=== PATIENT | male | born 1925 | race Caucasian/White ===

== ENCOUNTER 2016-12-03 09:11 | Inpatient (IN) | payer MEDICARE, BC ==
[2016-11-19 09:42] VITALS: BMI 26.1
[~2016-12-03 09:11] MED LIST: ACETAMINOPHEN TAB 500 MG TAB PO ONE; DEXAMETHASONE SOD PHOSPHATE 10 MG/ML 1 ML VIAL IV ONE; HYDROmorphone 1 MG/ML 1 ML SYRINGE IVP PRN; LACTATED RINGERS 1,000 ML IV SCH; MELOXICAM 7.5 MG TAB PO ONE; MIDAZOLAM 2 MG/2 ML VIAL IV PRN; ONDANSETRON 4 MG/2 ML VIAL IVP ONE; TRANEXAMIC ACID 1,000 MG in SODIUM CHLORIDE 0.9% 100 ML IVPB ONE; ceFAZolin 2 GM in SODIUM CHLORIDE 0.9% 100 ML IVPB ONE
[2016-12-03] MEDS ORDERED: ROPIVACAINE 246.25 MG, EPINEPHrine 0.5 MG, KETOROLAC 30 MG, cloNIDine HCL/PF 80 MCG, WA... MISCELLANE ONE ×5 (09:30)
[2016-12-03] MEDS ORDERED: ONDANSETRON 4 MG/2 ML VIAL IVP PRN (10:10)
[2016-12-03] MEDS ORDERED: hydrOXYzine PAMOATE 25 MG CAP PO PRN (10:10)
[2016-12-03] MEDS ORDERED: MAGNESIUM HYDROXIDE 2,400 MG/10 ML CUP PO PRN (10:10)
[2016-12-03] MEDS ORDERED: DIAZEPAM 5 MG TAB PO PRN ×2 (10:10)
[2016-12-03] MEDS ORDERED: NALOXONE 0.4 MG/ML 1 ML VIAL IV PRN (10:10)
[2016-12-03] MEDS ORDERED: HYDROmorphone 1 MG/ML 1 ML SYRINGE IVP PRN ×3 (10:10)
[2016-12-03] MEDS ORDERED: HYDROcodone/APAP 5-325MG 1 EACH TAB PO PRN ×2 (10:10)
[2016-12-03] MEDS ORDERED: BISACODYL 10 MG SUPP RECTAL PRN (10:10)
[2016-12-03] MEDS ORDERED: SODIUM CHLORIDE 0.9% 1,000 ML IV SCH (10:15)
[2016-12-03 10:51] VITALS: BP 174/82; PULSE 96; RESP 18; TEMP 98.2
[2016-12-03] MEDS ORDERED: ROPIVACAINE 1,100 MG, SODIUM CHLORIDE 0.9% 330 ML MISCELLANE PRN ×2 (10:57)
[2016-12-03 11:03] LABS: Potassium 4.5 mmol/L (3.5-5.1)
[2016-12-03 11:25] LABS: INR 1.7 (<1.1); Prothrombin Time 16.1 sec (9.0-12.0)
--- NOTE | 2016-12-03 11:58 | P.PN ---
Progress Note - Text The patient was seen and evaluated in the preoperative area. His lab values were reviewed and he was found to have an INR of 1.7. His preop INR was 1.4. He is currently not taking any anticoagulants. He was also noted that his sodium level was elevated from preop as well. After discussing this with the anesthesiologist, and also with Dr. Hoffman, I recommended that we hold his surgery until further workup can be obtained. The patient is agreeable to this , and will be reevaluated by Dr. Hoffman's office this week.
[2016-12-03] MEDS ORDERED: ceFAZolin 2 GM in SODIUM CHLORIDE 0.9% 100 ML IVPB SCH (16:00)
[2016-12-03] MEDS ORDERED: ASPIRIN 325 MG TAB PO SCH (21:00)
[2016-12-03] MEDS ORDERED: SENNOSIDES-DOCUSATE SODIUM 1 EACH TAB PO SCH (21:00)
[2016-12-04] MEDS ORDERED: MELOXICAM 7.5 MG TAB PO SCH (09:00)
== END 2016-12-03 10:28 | disposition home or self-care (01) | DRG 554 ==
LOC: 2ORMAIN 09:28
PROVIDERS: ADMIT Orthopaedic Surgery; ATTEND Orthopaedic Surgery
DX: M17.11 Unilateral primary osteoarthritis, right knee (principal); E87.0 Hyperosmolality and hypernatremia; D68.9 Coagulation defect, unspecified; I10 Essential (primary) hypertension; E03.9 Hypothyroidism, unspecified; Z79.899 Other long term (current) drug therapy; Z53.09 Procedure and treatment not carried out because of other contraindication
CPT/HCPCS: 80051; 85610

== ENCOUNTER 2016-12-16 13:10 | Inpatient (IN) | payer MEDICARE, BC ==
[~2016-12-16 13:10] MED LIST changes: -DEXAMETHASONE SOD PHOSPHATE 10 MG/ML 1 ML VIAL IV ONE; +LIDOCAINE 1% 20 ML VIAL (10MG/ML) FOR IV START INTRADERMA PRN; +Pre Op ABX Message 1 EACH MISC MISCELLANE ONE; +ROPIVACAINE 246.25 MG, EPINEPHrine 0.5 MG, KETOROLAC 30 MG, cloNIDine HCL/PF 80 MCG, WA... MISCELLANE ONE; -ceFAZolin 2 GM in SODIUM CHLORIDE 0.9% 100 ML IVPB ONE; +fentaNYL (PF) 50 MCG/ML 20 ML VIAL IVP PRN
[2016-12-16 14:26] VITALS: BP 195/90; PULSE 82; RESP 18; TEMP 98.1
[2016-12-16] MEDS ORDERED: LIDOCAINE 1% 20 ML VIAL (10MG/ML) FOR IV START INTRADERMA ONE (14:46)
[2016-12-16 14:48] LABS: Basophils % (A) 0 %; CH 32.1; CHCM 34.3; Eosinophils % (A) 1 %; HCT 43.5 % (39.0-53.0); HDW 2.49; HGB 14.1 gm/dL (13.0-17.5); Luc # (Auto) 0.06; Luc % (Auto) 1; Lymphocytes # (A) 0.8 k/uL (1.0-4.8); Lymphocytes % (A) 15 %; MCH 30.5 pg (25.0-35.0); MCHC 32.4 g/dL (31.0-37.0); Mean Platelet Volume 8.3; Monocytes # (A) 0.3 k/uL (0-1.0); Monocytes % (A) 5 %; Neutrophils # (A) 4.4 k/uL (1.3-7.7); Neutrophils % (A) 78 %; RBC 4.63 m/uL (4.30-5.90); RDW 13.3 % (11.5-15.5); WBC 5.7 k/uL (3.8-10.6); WBC (Perox) 5.74
[2016-12-16] MEDS ORDERED: DEXAMETHASONE SOD PHOSPHATE 10 MG/ML 1 ML VIAL IV ONE (14:51)
[2016-12-16 14:57] LABS: INR 1.7 (<1.1); Prothrombin Time 16.4 sec (9.0-12.0)
[2016-12-16 15:07] LABS: ALT 39 U/L (21-72); AST 28 U/L (17-59); Alkaline Phosphatase 101 U/L (38-126); Anion Gap 13 mmol/L; Blood Urea Nitrogen 19 mg/dL (9-20); Calcium 9.5 mg/dL (8.4-10.2); Carbon Dioxide 23 mmol/L (22-30); Chloride 105 mmol/L (98-107); Glucose 86 mg/dL (74-99); Non-African American GFR(MDRD) >60 (>60 ml/min/1.73 sqM); Potassium 4.4 mmol/L (3.5-5.1); Sodium 141 mmol/L (137-145); Total Bilirubin 1.9 mg/dL (0.2-1.3)
== END 2016-12-17 16:30 | disposition home or self-care (01) | DRG 554 ==
LOC: 2ORMAIN 13:10
PROVIDERS: ADMIT Orthopaedic Surgery; ATTEND Orthopaedic Surgery
DX: M17.0 Bilateral primary osteoarthritis of knee (principal); I48.91 Unspecified atrial fibrillation; I10 Essential (primary) hypertension; R26.81 Unsteadiness on feet; H91.90 Unspecified hearing loss, unspecified ear; E03.9 Hypothyroidism, unspecified; Z79.82 Long term (current) use of aspirin; Z79.899 Other long term (current) drug therapy; Z85.9 Personal history of malignant neoplasm, unspecified; Z96.641 Presence of right artificial hip joint; Z82.49 Family history of ischemic heart disease and other diseases of the circulatory system
CPT/HCPCS: 80053; 85025; 85610

== ENCOUNTER → 2017-03-11 | Outpatient (CLI) | payer MEDICARE, BC ==
[2017-03-11 11:58] LABS: Appearance,Urine Clear (Clear); Bilirubin,Urine Negative (Negative); Glucose,Urine (UA) Negative (Negative); Ketones,Urine Negative (Negative); Leukocyte Esterase,Urine Negative (Negative); Nitrite,Urine Negative (Negative); PH, Urine 6.5 (5.0-8.0); Protein,Urine Negative (Negative); Specific Gravity,Urine 1.006 (1.001-1.035); UA Billing (MACRO vs. MICRO) CHEM; Urobilinogen,Urine <2.0 mg/dL (<2.0)
[2017-03-11 12:06] LABS: Basophils % (A) 0 %; CHCM 32.2; Eosinophils # (A) 0.1 k/uL (0-0.7); Eosinophils % (A) 2 %; HCT 42.6 % (39.0-53.0); HDW 2.34; HGB 13.8 gm/dL (13.0-17.5); Luc # (Auto) 0.08; Luc % (Auto) 2; Lymphocytes # (A) 0.9 k/uL (1.0-4.8); Lymphocytes % (A) 21 %; MCH 31.2 pg (25.0-35.0); MCHC 32.3 g/dL (31.0-37.0); MCV 96.6 fL (80.0-100.0); Mean Platelet Volume 7.6; Monocytes # (A) 0.3 k/uL (0-1.0); Monocytes % (A) 6 %; Neutrophils # (A) 2.8 k/uL (1.3-7.7); Neutrophils % (A) 68 %; RBC 4.42 m/uL (4.30-5.90); RDW 13.7 % (11.5-15.5); WBC 4.2 k/uL (3.8-10.6); WBC (Perox) 4.27
[2017-03-11 12:13] LABS: ALT 32 U/L (21-72); AST 23 U/L (17-59); Alkaline Phosphatase 91 U/L (38-126); Anion Gap 12 mmol/L; Blood Urea Nitrogen 15 mg/dL (9-20); Calcium 9.5 mg/dL (8.4-10.2); Carbon Dioxide 26 mmol/L (22-30); Chloride 105 mmol/L (98-107); Glucose 114 mg/dL (74-99); Non-African American GFR(MDRD) >60 (>60 ml/min/1.73 sqM); Potassium 4.6 mmol/L (3.5-5.1); Sodium 143 mmol/L (137-145); Total Bilirubin 1.2 mg/dL (0.2-1.3); Total Protein 7.2 g/dL (6.3-8.2)
[2017-03-11 12:44] LABS: INR 1.6 (<1.1); Partial Thromboplastin Time 25.2 sec (22.0-30.0); Prothrombin Time 15.4 sec (9.0-12.0)
== END | disposition home or self-care (01) ==
LOC: LABPAT 11:21
PROVIDERS: ATTEND Orthopaedic Surgery
DX: Z01.812 Encounter for preprocedural laboratory examination (principal); Z79.01 Long term (current) use of anticoagulants
CPT/HCPCS: 36415; 80053; 81003; 85025; 85610; 85730; 87070

== ENCOUNTER 2017-04-01 06:43 | Inpatient (IN) | payer MEDICARE, BC ==
[2017-03-31 10:58] VITALS: BMI 25.8
[~2017-04-01 06:43] MED LIST changes: +DEXAMETHASONE SOD PHOSPHATE 10 MG/ML 1 ML VIAL IV ONE; -HYDROmorphone 1 MG/ML 1 ML SYRINGE IVP PRN; -Pre Op ABX Message 1 EACH MISC MISCELLANE ONE; -ROPIVACAINE 246.25 MG, EPINEPHrine 0.5 MG, KETOROLAC 30 MG, cloNIDine HCL/PF 80 MCG, WA... MISCELLANE ONE; +SCOPOLAMINE 1.5MG/72HR PATCH TRANSDERM ONE; +ceFAZolin 2 GM in SODIUM CHLORIDE 0.9% 100 ML IVPB ONE; -fentaNYL (PF) 50 MCG/ML 20 ML VIAL IVP PRN
[2017-04-01] MEDS ORDERED: SODIUM CHLORIDE 0.9% 500 ML IV ONE (08:07)
[2017-04-01] MEDS ORDERED: LIDOCAINE 1% 20 ML VIAL (10MG/ML) FOR IV START INTRADERMA ONE (08:07)
[2017-04-01] MEDS ORDERED: SUCCINYLCHOLINE CHLORIDE 100 MG/5 ML SYR IV ONE (09:46)
[2017-04-01] MEDS ORDERED: NEOSTIGMINE 1 MG/ML 10 ML VIAL ONE (09:46)
[2017-04-01] MEDS ORDERED: ROCURONIUM BROMIDE 10 MG/ML 10 ML VIAL IV ONE (09:46)
[2017-04-01] MEDS ORDERED: ePHEDrine 50 MG/ML 1 ML AMP ONE (09:46)
[2017-04-01] MEDS ORDERED: LIDOCAINE 1% INJ 10MG/ML (20 ML MDV) ONE (09:46)
[2017-04-01] MEDS ORDERED: MIDAZOLAM 2 MG/2 ML VIAL ONE (09:46)
[2017-04-01] MEDS ORDERED: fentaNYL (PF) 50 MCG/ML 2 ML AMP ONE (09:46)
[2017-04-01] MEDS ORDERED: PROPOFOL 10 MG/ML 20 ML VIAL IV ONE (09:46)
[2017-04-01] MEDS ORDERED: GLYCOPYRROLATE 0.2 MG/ML 2 ML VIAL ONE (09:46)
[2017-04-01] MEDS: ROPIVACAINE 246.25 MG, EPINEPHrine 0.5 MG, KETOROLAC 30 MG, cloNIDine HCL/PF 80 MCG, WA... MISCELLANE ONE ×10 (10:18→10:32)
[2017-04-01] MEDS ORDERED: ceFAZolin 3,000 MG in SODIUM CHLORIDE 0.9% IRRIGATIO 3,000 ML IRRIGATION ONE (10:19)
[2017-04-01] MEDS ORDERED: HYDROmorphone 1 MG/ML 1 ML SYRINGE IVP PRN ×3 (11:21)
[2017-04-01] MEDS ORDERED: hydrOXYzine PAMOATE 25 MG CAP PO PRN (11:21)
[2017-04-01] MEDS ORDERED: DIAZEPAM 5 MG TAB PO PRN ×2 (11:21)
[2017-04-01] MEDS ORDERED: BISACODYL 10 MG SUPP RECTAL PRN (11:21)
[2017-04-01] MEDS ORDERED: MAGNESIUM HYDROXIDE 2,400 MG/10 ML CUP PO PRN (11:21)
[2017-04-01] MEDS ORDERED: NALOXONE 0.4 MG/ML 1 ML VIAL IV PRN (11:21)
[2017-04-01] MEDS ORDERED: ONDANSETRON 4 MG/2 ML VIAL IVP PRN (11:21)
--- NOTE | 2017-04-01 12:01 | XR ---
Right knee limited HISTORY: Status post right knee arthroplasty 2 views of the right knee No comparisons Patient is status post right knee arthroplasty. Lucency in the soft tissues compatible with postop st ate. There are vascular calcifications noted. Alignment is anatomic. IMPRESSION: Orthopedic follow-up.
[2017-04-01] MEDS: HYDROmorphone 1 MG/ML 1 ML SYRINGE IVP PRN ×2 (12:06→12:12)
[2017-04-01] MEDS ORDERED: LABETALOL 5 MG/ML VIAL MDV IVP STA (12:18)
[2017-04-01] MEDS ORDERED: LABETALOL 5 MG/ML VIAL MDV IVP ONE ×2 (12:30→12:32)
[2017-04-01] MEDS ORDERED: hydrALAZINE HCL 20 MG/ML 1 ML VIAL IVP ONE (12:51)
--- NOTE | 2017-04-01 13:17 | P.OP ---
Date of Procedure: 04/01/17 Preoperative Diagnosis: Severe osteoarthritis right knee Postoperative Diagnosis: Severe osteoarthritis right knee Procedure(s) Performed: Right total knee arthroplasty Implants: Olvera [employer] Nephew Oxinium femoral component size 6, right Olvera & Nephew Jenny II right nonporous tibial baseplate size 8 Olvera [employer] Nephew size 9 mm Legion XLPE high flexion articular insert, size 7-8 Olvera [employer] Nephew Jenny II resurfacing patellar component, 35 mm All components were cemented using Torrey bone cement.. The articulation is ceramic on polyethylene. Anesthesia: GETA Surgeon: Luis Fernando Jensen Fitness And Wellness Instructor #1: Christelle Bell Fitness And Wellness Instructor #2: Megan Britton Estimated Blood Loss (ml): 50 Pathology: other (Bone and cartilage) Condition: stable Disposition: PACU Indications for Procedure: After failure of conservative treatment we discussed the surgical and nonsurgical treatment options at length. Patient wishes to proceed with a total knee arthroplasty. Complications specific to this procedure were discussed at length, including but not limited to infection, bleeding, stiffness , and nerve injury. Patient is aware of all these complications and informed consent was obtained Operative Findings: The operative findings are consistent with severe osteoarthritis of the right knee Description of Procedure: Patient was seen in the preoperative area consent was reviewed and operative site was marked with a skin marker. An adductor canal pain catheter was placed by anesthesia in the preoperative area. Patient was then brought to the operating room and given preoperative antibiotics intravenously. A spinal anesthetic was administered by the anesthesia department. A tourniquet was placed on the upper thigh and the lower extremity was prepped and draped in usual sterile fashion. A gram of transexamic acid was given. A universal timeout was then performed which confirmed the patient's name, surgical site, ALLERGIES, and consent. The lower extremity was then exsanguinated and tourniquet was inflated to 250 mmHg. A standard and anterior midline approach to the knee was performed. The skin and subcutaneous tissue was dissected down to the patellar tendon. A medial parapatellar arthrotomy was then performed. The knee was then extended, the patellar was everted, and the knee was again flexed. Anterior horns of both menisci were excised, and a release was performed to the posterior medial aspect of the knee. On gross visual inspection, there was complete loss of articular cartilage in the medial and patellofemoral joint spaces. There was also significant cartilage damage in the lateral compartment. There were multiple periarticular osteophytes which were then removed with a Ronguer. The femoral canal was then opened with the appropriate drill, and the intramedullary femoral cutting guide was then placed and set for 4 of valgus. The distal femoral cutting block was then pinned in place, and the distal femur was then cut. The cutting block was then removed and the cut was checked for flatness. Next, the sizing guide was then placed and set for 3 external rotation based off of the epicondylar axis and Whitesides line. After the femur was sized, the appropriate 4-in-1 cutting block was then pinned in place. The anterior condyles were cut without notching. The posterior and chamfer cuts were performed while protecting the collateral ligaments. The cutting block was then removed, and the femoral canal was plugged with autologous bone. Attention was then directed to the tibia. The remaining ACL was removed with a Ronguer, and the tibia was then gently subluxed forward with a large bent knee retractor. Any remaining menisci was excised. The posterior lateral corner was cauterized in order to cauterize the lateral geniculate artery. The extra medullary tibial cutting guide was then placed, set for the appropriate rotation , slope, and depth of resection. The proximal tibia cutting guide was then pinned in place. Proximal tibia was then cut and sized. Next trials were then placed with the appropriate-sized insert. The knee was able to fully extend and flex to 130 and was stable throughout all range of motion. The knee was then extended, patella everted. Patella was then measured, and then using an osteotomy guide, the patella was cut at the appropriate level. The patella was then measured and drilled and the patella trial was then placed. The knee was then taken through range of motion with the patella trial and the patella tracked normally. The knee was then extended patella trial was then removed and the patella was everted. Knee was then flexed and lug holes were drilled through the femoral trial and the femoral trial was then removed. The tibial was then exposed, and the tibial broach guide was then pinned in place after it was set for the appropriate rotation to allow for the most coverage without overhang. The tibia was then reamed and broached. The cut surfaces of bone were then irrigated with pulsatile lavage. The posterior structures were injected with the ropivacaine solution. The knee was also irrigated with Irrisept solution. The components were then opened, the cement was mixed, and the components were then cemented in place. The cement was allowed to harden with the knee in full extension. While the cement was hardening, the remaining soft tissues were then injected with a ropivacaine solution, which consisted of 246.25 mg of ropivacaine, 0.5 mg of epinephrine, 30 mg of Toradol, 80 g of clonidine, and 48.45 mL of sterile water, for a total of 100 mL of fluid injected. After the cemented hardened. The tourniquet was released, and hemostasis was obtained. The knee was again irrigated. The knee was again taken through range of motion and found to be stable throughout all range of motion of 0-130, and the patella tracked normally. The fascia was then closed with #2 strata fix suture. The subcutaneous tissue was closed with 3-0 Vicryl and 3-0 strata fix. Dermabond tape was used for the skin and placed with the knee in flexion. The patient was placed in a sterile dressing. Patient was then transferred to recovery room in stable condition. The assistant grocery AMINA Son was required due the complexity surgery and the need for a skilled surgical services director. She assisted in positioning, draping , retraction, and closure of the wound.
[2017-04-01] MEDS: SODIUM CHLORIDE 0.9% 1,000 ML IV SCH ×2 (17:50→19:11)
[2017-04-01] MEDS: ceFAZolin 2 GM in SODIUM CHLORIDE 0.9% 100 ML IVPB SCH (19:03)
[2017-04-01] MEDS ORDERED: PROCHLORPERAZINE 10 MG TAB PO PRN (19:54)
[2017-04-01] MEDS: ASPIRIN 325 MG TAB PO SCH (20:57)
[2017-04-01] MEDS: SENNOSIDES-DOCUSATE SODIUM 1 EACH TAB PO SCH (20:57)
[2017-04-01] MEDS ORDERED: GLYCERIN ADULT SUPPOSITORY 1 EACH RECTAL PRN (22:31)
[2017-04-02] MEDS: HYDROcodone/APAP 5-325MG 1 EACH TAB PO PRN ×5 (00:36→23:03)
[2017-04-02] MEDS: amLODIPine 2.5 MG TAB PO SCH ×2 (00:38→09:43)
[2017-04-02] MEDS: ceFAZolin 2 GM in SODIUM CHLORIDE 0.9% 100 ML IVPB SCH (03:38)
[2017-04-02] MEDS ORDERED: NON-FORMULARY DRUG (Omega-3 Fatty Acids/Fish Oil [Fish Oil 1,000 Mg Softgel] 1 CAP) PO SCH (09:00)
--- NOTE | 2017-04-02 09:35 | P.PN ---
Subjective Principal diagnosis: Status post total knee arthroplasty This is a well-appearing 89-year-old male who is status post total knee arthroplasty with a history of osteoarthritis of the right knee. Patient is postop day #1. Patient states he has been up and walking to the bathroom but has not been evaluated by physical therapy yet. Patient complains of mild tightness to the knee but otherwise has no complaints. Patient was seen and evaluated at bedside with Dr. Jensen today. Objective - Vital Signs Vital signs: Vital Signs Temp 98.1 F 04/01/17 20:21 Pulse 75 04/01/17 20:21 Resp 20 04/01/17 20:21 BP 161/83 04/01/17 20:21 Pulse Ox 96 04/01/17 20:21 Intake & Output 04/01/17 04/02/17 04/02/17 18:59 06:59 18:59 Intake Total 5946 700 Output Total 550 Balance 5946 150 Weight 81.647 kg Intake: IV 4750 Intake, IV Titration 700 Amount Sodium Chloride 0.9% 1, 600 000 ml @ 50 mls/hr IV . Q20H [facility] Rx#:[id number] ceFAZolin 2 gm In Sodium 100 Chloride 0.9% 100 ml @ 100 mls/hr IVPB Q8H [facility] Rx#:[id number] Blood Product 1196 Ffp 24 Cpd Unit 292 [id number] Ffp 24 Cpd Unit 324 [id number] Ffp 24 Cpd Unit 283 [id number] Ffp 24 Cpd Unit 297 [id number] Output: Urine 550 - Exam Vital signs are stable. Patient's calf is soft and nontender. Patient has full foot and ankle motion. Incision is clean, dry and intact with no drainage. Neurovascular status is intact. Assessment and Plan (1) History of total knee arthroplasty Status: Acute (2) Osteoarthritis of right knee Status: Acute Plan: #1 continue with routine postoperative care. #2 anticoagulation with aspirin. #3 physical therapy and CPM today. #4 appreciated input from medicine. #5 possible discharge home or to rehab on Friday
[2017-04-02 09:36] VITALS: RESP 16
[2017-04-02] MEDS: levETIRAcetam 500 MG TAB PO SCH ×2 (09:38→20:46)
[2017-04-02] MEDS: MULTIVITAMINS, THERA 1 EACH TAB PO SCH (09:38)
[2017-04-02] MEDS: TERAZOSIN 1 MG CAP PO SCH (09:38)
[2017-04-02] MEDS: ASPIRIN 325 MG TAB PO SCH ×2 (09:38→20:46)
[2017-04-02 10:18] LABS: Basophils % (A) 1 %; CH 31.5; CHCM 33.4; Eosinophils # (A) 0.1 k/uL (0-0.7); Eosinophils % (A) 2 %; HCT 27.7 % (39.0-53.0); HGB 9.3 gm/dL (13.0-17.5); Luc % (Auto) 2; Lymphocytes # (A) 0.6 k/uL (1.0-4.8); Lymphocytes % (A) 12 %; MCHC 33.7 g/dL (31.0-37.0); MCV 94.7 fL (80.0-100.0); Mean Platelet Volume 8.2; Monocytes # (A) 0.5 k/uL (0-1.0); Monocytes % (A) 9 %; Neutrophils # (A) 3.8 k/uL (1.3-7.7); Neutrophils % (A) 75 %; RBC 2.92 m/uL (4.30-5.90); RDW 13.4 % (11.5-15.5); WBC 5.1 k/uL (3.8-10.6)
[2017-04-02] MEDS: ATORVASTATIN 20 MG TAB PO SCH (20:46)
[2017-04-02] MEDS: SENNOSIDES-DOCUSATE SODIUM 1 EACH TAB PO SCH (20:46)
[2017-04-03] MEDS: TERAZOSIN 1 MG CAP PO SCH (08:07)
[2017-04-03] MEDS: amLODIPine 2.5 MG TAB PO SCH (08:07)
[2017-04-03] MEDS: ASPIRIN 325 MG TAB PO SCH ×2 (08:07→21:40)
[2017-04-03] MEDS: levETIRAcetam 500 MG TAB PO SCH ×2 (08:07→21:40)
[2017-04-03] MEDS: MULTIVITAMINS, THERA 1 EACH TAB PO SCH (08:07)
--- NOTE | 2017-04-03 08:24 | P.PN ---
Subjective Principal diagnosis: Status post total knee arthroplasty This is a well-appearing 89-year-old male who is status post total knee arthroplasty with a history of osteoarthritis of the right knee. Patient is postop day #2. Patient has been up and walking. Patient has no new complaints. Objective - Vital Signs Vital signs: Vital Signs Temp 98.8 F 04/03/17 07:39 Pulse 82 04/03/17 07:39 Resp 16 04/03/17 07:39 BP 129/79 04/03/17 07:39 Pulse Ox 94 L 04/03/17 07:39 Intake & Output 04/02/17 04/03/17 04/03/17 18:59 06:59 18:59 Intake Total 500 1190 Output Total 400 375 Balance 100 815 Weight 81.647 kg Intake: IV 500 600 Sodium Chloride 0.9% 1, 500 600 000 ml @ 50 mls/hr IV . Q20H [facility] Rx#:[id number] Oral 590 Output: Urine 400 375 Uretheral ([place]ol[place]) 400 375 Other: Voiding Method Urinal Urinal # Voids 2 - Exam Vital signs are stable. Patient's calf is soft and nontender. Patient has full foot and ankle motion. Incision is clean, dry and intact with no drainage. Neurovascular status is intact. - Labs CBC & Chem 7: 04/02/17 07:19 Labs: Abnormal Lab Results - Last 24 Hours (Table) 04/02/17 Range/Units 07:19 RBC 2.92 L (4.30-5.90) m/uL Hgb 9.3 L D (13.0-17.5) gm/dL Hct 27.7 L (39.0-53.0) % Plt Count 119 L (150-450) k/uL Lymphocytes # 0.6 L (1.0-4.8) k/uL Assessment and Plan (1) History of total knee arthroplasty Status: Acute (2) Osteoarthritis of right knee Status: Acute Plan: #1 continue with routine postoperative care. #2 anticoagulation with aspirin. #3 physical therapy and CPM today. #4 appreciated input from medicine. #5 possible discharge home or to rehab on Friday
--- NOTE | 2017-04-03 11:05 | XR ---
EXAMINATION TYPE: XR chest 2V DATE OF EXAM: 04/03/2017 10:55 AM COMPARISON: 08/30/2014 TECHNIQUE: PA and lateral views submitted. HISTORY: ECF placement FINDINGS: Bilateral infiltrate and small effusion seen. No pneumothorax or overt failure. Severe arthropathy le ft shoulder. IMPRESSION: 1. Bilateral infiltrate and small effusion. Tiny granuloma right lung base suspected.
[2017-04-03] MEDS: HYDROcodone/APAP 5-325MG 1 EACH TAB PO PRN ×2 (16:09→21:47)
[2017-04-03] MEDS: ATORVASTATIN 20 MG TAB PO SCH (21:41)
[2017-04-03] MEDS: SENNOSIDES-DOCUSATE SODIUM 1 EACH TAB PO SCH (21:42)
[2017-04-03] MEDS: SODIUM CHLORIDE 0.9% 1,000 ML IV SCH ×2 (21:43→21:49)
[2017-04-04] MEDS: HYDROcodone/APAP 5-325MG 1 EACH TAB PO PRN ×2 (05:07→10:24)
[2017-04-04 07:46] VITALS: BP 132/67; PULSE 62; TEMP 97.2
--- NOTE | 2017-04-04 07:54 | P.PN ---
Subjective Principal diagnosis: Continuing care Objective - Vital Signs Vital signs: Vital Signs Temp 97.2 F L 04/04/17 07:00 Pulse 62 04/04/17 07:00 Resp 16 04/04/17 07:00 BP 132/67 04/04/17 07:00 Pulse Ox 97 04/04/17 07:00 Intake & Output 04/03/17 04/04/17 04/04/17 18:59 06:59 18:59 Intake Total 500 400 Output Total 1000 975 Balance -500 -575 Intake: IV 500 400 Sodium Chloride 0.9% 1, 500 400 000 ml @ 50 mls/hr IV . Q20H [facility] Rx#:[id number] Output: Urine 1000 975 Uretheral ([place]) 975 Other: Voiding Method Indwelling Catheter Indwelling Catheter - Constitutional General appearance: Present: average body habitus - EENT Eyes: Absent: abnormal pupil - Respiratory Respiratory: bilateral: CTA - Cardiovascular Rhythm: regular Heart sounds: normal: S1, S2 - Gastrointestinal General gastrointestinal: Present: soft. Absent: tenderness - Neurologic Neurologic: Present: CNII-XII intact - Labs CBC & Chem 7: 04/02/17 07:19 Assessment and Plan (1) Essential (primary) hypertension Status: Acute (2) Osteoarthritis of right knee Status: Acute Plan: Element of dysphagia. If the symptoms continue, consider GI referral with possible EGD and station. Otherwise, the patient has been told to continue to try to eat as much as "possible.". Anticipate discharge as per orthopedics.
--- NOTE | 2017-04-04 08:04 | P.PN ---
Subjective This is continue present 89-year-old white male essentially admitted for knee arthroplasty. The patient is now postop and has been complaining of intermittent dysphagia. speech therapy was consulted. Appreciate input. Objective - Vital Signs Vital signs: Vital Signs Temp 97.2 F L 04/04/17 07:00 Pulse 62 04/04/17 07:00 Resp 16 04/04/17 07:00 BP 132/67 04/04/17 07:00 Pulse Ox 97 04/04/17 07:00 Intake & Output 04/03/17 04/04/17 04/04/17 18:59 06:59 18:59 Intake Total 500 400 Output Total 1000 975 Balance -500 -575 Intake: IV 500 400 Sodium Chloride 0.9% 1, 500 400 000 ml @ 50 mls/hr IV . Q20H [facility] Rx#:[id number] Output: Urine 1000 975 Uretheral (Boland) 975 Other: Voiding Method Indwelling Catheter Indwelling Catheter - Labs CBC & Chem 7: 04/02/17 07:19 Assessment and Plan (1) Essential (primary) hypertension Status: Acute (2) Osteoarthritis of right knee Status: Acute
[2017-04-04] MEDS: MULTIVITAMINS, THERA 1 EACH TAB PO SCH (08:16)
[2017-04-04] MEDS: levETIRAcetam 500 MG TAB PO SCH (08:16)
[2017-04-04] MEDS: ASPIRIN 325 MG TAB PO SCH (08:16)
[2017-04-04] MEDS: amLODIPine 2.5 MG TAB PO SCH (08:17)
[2017-04-04] MEDS: TERAZOSIN 1 MG CAP PO SCH (08:17)
[2017-04-04 08:23] LABS: Basophils % (A) 0 %; CH 31.4; CHCM 32.9; Eosinophils # (A) 0.3 k/uL (0-0.7); Eosinophils % (A) 6 %; HCT 26.4 % (39.0-53.0); HDW 2.29; HGB 8.6 gm/dL (13.0-17.5); Luc # (Auto) 0.11; Luc % (Auto) 2; Lymphocytes # (A) 0.7 k/uL (1.0-4.8); Lymphocytes % (A) 14 %; MCH 31.2 pg (25.0-35.0); MCHC 32.5 g/dL (31.0-37.0); MCV 95.9 fL (80.0-100.0); Mean Platelet Volume 8.2; Monocytes # (A) 0.3 k/uL (0-1.0); Monocytes % (A) 7 %; Neutrophils # (A) 3.4 k/uL (1.3-7.7); Neutrophils % (A) 71 %; RBC 2.75 m/uL (4.30-5.90); RDW 13.4 % (11.5-15.5); WBC 4.8 k/uL (3.8-10.6); WBC (Perox) 4.85
--- NOTE | 2017-04-04 09:49 | P.DS ---
Providers Date of admission: 04/01/17 06:43 Expected date of discharge: 04/04/17 Attending physician: Luis Fernando Jensen Consults: 04/01/17 11:21 Consult Physician Routine Consulting Provider: Chevy Hoffman Consult Reason/Comments: medical management Do you want consulting provider notified?: Yes Primary care physician: Chevy Hoffman - Discharge Diagnosis(es) (1) History of total knee arthroplasty Current Visit: Yes Status: Acute (2) Osteoarthritis of right knee Current Visit: Yes Status: Acute Hospital Course: This is a 89-year-old male with known history of degenerative arthritis of the right knee. The patient presents for evaluation. After discussion and consideration patient elects to proceed with total knee arthroplasty. The patient is seen preoperatively by Dr. Jensen and cleared for surgery. Patient is admitted to [facility] on 04/01/17 for total knee arthroplasty. The procedures performed without complication or sequelae. The patient is doing well postoperatively. Labs and vital signs are stable on day of discharge. On day of discharge patient's knee incision is healing well. There is minimal erythema. There is no drainage noted at this time. There is minimal soft tissue swelling to the knee. Patient has full foot and ankle motion without difficulty or pain. Calf is soft and nontender. Neurovascular status to the right lower extremity is intact. Patient is discharged to rehab in good condition. Please see med rec for accurate list of home medications. Plan - Discharge Summary New Discharge Prescriptions: Aspirin 325 mg PO BID #60 tab HYDROcodone/APAP 5-325MG [[place]us 5-325] 1 - 2 tab PO Q4-6H PRN #90 tab PRN Reason: Pain Sennosides-Docusate Sodium [Senokot-S] 1 tab PO BID #60 tablet Discharge Medication List Terazosin [Hytrin] 1 mg PO QAM 01/16/15 [History] amLODIPine BESYLATE [Norvasc] 2.5 mg PO QAM 06/15/15 [History] Atorvastatin [Lipitor] 20 mg PO HS 11/19/16 [History] Ibuprofen [Advil] 200 mg PO Q6H PRN 11/19/16 [History] Multivitamin [Men's Multi-Vitamin] 1 tab PO DAILY 11/19/16 [History] Volga-3 Fatty Acids/Fish Oil [Fish Oil 1,000 mg Softgel] 1 cap PO DAILY [History] levETIRAcetam [Keppra] 500 mg PO Q12HR 11/19/16 [History] Glycerin Adult Suppository 1 supp RECTAL DAILY PRN 03/31/17 [History] Aspirin 325 mg PO BID #60 tab 04/04/17 [Rx] HYDROcodone/APAP 5-325MG [[place] 5-325] 1 - 2 tab PO Q4-6H PRN #90 tab 04/04/17 [ Rx] Sennosides-Docusate Sodium [Senokot-S] 1 tab PO BID #60 tablet 04/04/17 [Rx] Follow up Appointment(s)/Referral(s): [facility], [NON-STAFF] - 1 Week Luis Fernando Jensen DO [Doctor of Osteopathic Medicine] - 2 Weeks Activity/Diet/Wound Care/Special Instructions: Weightbearing as tolerated with a walker CPM 5-6h daily Daily dressing changes, keep incision clean and dry May shower if no drainage from incision Call [facility] with questions or concerns [phone] Discharge Disposition: TRANSFER TO SNF/ECF
== END 2017-04-04 13:45 | DRG 470 ==
LOC: 2ORMAIN 06:43 → 3SUR 11:16
PROVIDERS: ADMIT Orthopaedic Surgery; ATTEND Orthopaedic Surgery
PROC: 0SRC0J9 Replacement of Right Knee Joint with Synthetic Substitute, Cemented, Open Approach (ICD-10-PCS; principal; 2017-04-01 08:30)
DX: M17.11 Unilateral primary osteoarthritis, right knee (principal); I48.91 Unspecified atrial fibrillation; R13.10 Dysphagia, unspecified; I10 Essential (primary) hypertension; R26.9 Unspecified abnormalities of gait and mobility; Z79.899 Other long term (current) drug therapy; Z82.49 Family history of ischemic heart disease and other diseases of the circulatory system
CPT/HCPCS: 36430; 71020; 85025; 86850; 86900; 86901; 88300; 94760